=== PATIENT | male | born 1945 | race Two or more races ===

== ENCOUNTER 2021-11-06 01:18 | Inpatient (IN) | payer MEDICARE, OTHER ==
[~2021-11-06] VITALS: Ht 182.9 cm; Wt 81.6 kg
--- NOTE | 2021-11-06 01:28 | NUR ---
BIBRA 89 FROM HOME FOR MIXED ALCOHOL AND XANAX, A, OX3 ON TRIAGE REPORTED TOOK ONE TAB OF XANAX ONLY AND DENIED SI/HI. PATIENT ALERT AND ORIENTED X3. AMBULATORY WITH NON LABORED BREATHING.
--- NOTE | 2021-11-06 01:48 | NUR ---
URINE COLLECTED AND SENT TO LAB
--- NOTE | 2021-11-06 01:48 | NUR ---
ER CUPOLA MELTING SUPERVISOR @ BEDSIDE
[2021-11-06] MEDS ORDERED: IV NS 0.9% 1,000 ML BAG IV ONE ×2 (02:30)
--- NOTE | 2021-11-06 02:31 | NUR ---
Rain valentin in [facility] - 11/06/21 at 0242 by HUEY Patient discharged to home in stable condition. Written and verbal after care instructions given. Patient verbalizes understanding of instruction.
[2021-11-06 02:51] LABS: ALANINE AMINOTRANSFERASE 43 U/L (12-78); ALKALINE PHOSPHATASE 76 U/L (46-116); ASPARTATE AMINOTRANSFERASE 20 U/L (15-37); BILIRUBIN,DIRECT 0.1 mg/dL (0.0-0.2); BILIRUBIN,TOTAL 0.2 mg/dL (0.2-1.0); CARBON DIOXIDE 28 mmol/L (21-32); CHLORIDE 108 mmol/L (98-107); CREATININE 1.5 mg/dL (0.6-1.3); POTASSIUM 4.3 mmol/L (3.5-5.1); SODIUM SERUM 145 mmol/L (136-145); UREA NITROGEN, BLOOD 45 mg/dL (7-18)
[2021-11-06 02:53] LABS: ACETAMINOPHEN < 2 ug/ml (10-30)
[2021-11-06 02:54] LABS: BASOPHILS % (AUTO) 0.3 % (0.0-2.0); EOSINOPHILS % (AUTO) 1.3 % (0.0-6.0); HEMATOCRIT 41 % (39-51); HEMOGLOBIN 13.6 g/dL (13.5-17.5); LYMPHOCYTES # (AUTO) 0.9 K/uL (0.8-4.8); LYMPHOCYTES % (AUTO) 12.3 % (20.0-44.0); MEAN CORPUSCULAR HGB CONC 34 g/dl (31.0-36.0); MEAN CORPUSCULAR VOLUME 97 fL (80-96); MONOCYTES # (AUTO) 0.6 K/uL (0.1-1.30); MONOCYTES % (AUTO) 8.4 % (2.0-12.0); NEUTROPHILS # (AUTO) 5.7 K/uL (1.8-8.9); NEUTROPHILS % (AUTO) 77.7 % (43.0-81.0); PLATELET COUNT (AUTO) 212 K/uL (150-450); RED BLOOD CELL COUNT(AUTO) 4.21 MIL/uL (4.5-6.0); WHITE BLOOD COUNT (AUTO) 7.3 K/uL (4.3-11.0)
--- NOTE | 2021-11-06 03:04 | NUR ---
20G IV LINE ESTABLISHED AT RAC. 1000ML 0.9% NS ADMINSTERRED END TIME 0404
[2021-11-06] MEDS ORDERED: IV NS 0.9% 1,000 ML IV ONE (03:30)
--- NOTE | 2021-11-06 04:23 | NUR ---
COVID SWAB DONE SENT TO LAB
--- NOTE | 2021-11-06 04:30 | NUR ---
MRSA SWAB COLLECTED AND SENT TO LAB. PATIENT'S BELONGINGS LIST DONE.
[2021-11-06 04:31] LABS: CALCIUM, SERUM 9.3 mg/dL (8.5-10.1); GLUCOSE 126 mg/dL (74-106)
--- NOTE | 2021-11-06 05:41 | NUR ---
TELE BED 721-1
--- NOTE | 2021-11-06 05:54 | NUR ---
REPORT GIVEN TO DARSHAN BOCANEGRA
[2021-11-06] MEDS ORDERED: MAG HYDROX/AL HYDROX/SIMETH 30 ML UDC PO PRN (06:00)
[2021-11-06] MEDS ORDERED: ZOLPIDEM TARTRATE 5 MG TABLET PO PRN (06:00)
[2021-11-06] MEDS ORDERED: MAGNESIUM HYDROXIDE 30 ML UDC PO PRN (06:00)
[2021-11-06] MEDS ORDERED: ONDANSETRON HCL/PF 4 MG/2 ML VIAL IVP PRN (06:00)
[2021-11-06] MEDS ORDERED: IV NS 0.9% 1,000 ML IV PRN (06:00)
[2021-11-06] MEDS ORDERED: ACETAMINOPHEN 325 MG TABLET PO PRN (06:00)
[2021-11-06] MEDS ORDERED: Z GUARD REMEDY 4 OZ OINT TP PRN (06:00)
--- NOTE | 2021-11-06 06:18 | NUR ---
REPORT GIVEN TO NOREEN
--- NOTE | 2021-11-06 06:38 | NUR ---
PATIENT TRANSFFERED TO [facility]- VIA ACLS
--- NOTE | 2021-11-06 06:48 | NUR ---
PT ARRIVED VIA GURNEY, ABLE TO AMBULATE TO BED. VS STABLE. WILL ENDORSE TO ONCOMING SHIFT FOR CARLEE.
[2021-11-06 06:50] VITALS: BP 136/59
--- NOTE | 2021-11-06 07:30 | NUR ---
SUPERVISOR PHOTOCOMPOSITION NOTES PT IN BED, ASLEEP, EASY TO AROUSE, ALERT AND ORIENTED, NO COMPLAINT OF PAIN OR ANY DISCOMFORT, IV FLUIDS INFUSING WELL,CALL LIGHT WITHIN REACH, NEEDS ATTENDED.
[2021-11-06 08:00] VITALS: BP 136/59
[2021-11-06] MEDS ORDERED: PROP80CA64 PO (08:00)
[2021-11-06] MEDS ORDERED: ALPR1TAB7 PO (08:00)
[2021-11-06] MEDS ORDERED: DEXT30TA10 PO (08:00)
[2021-11-06] MEDS ORDERED: ZOLP10TA2 PO (08:00)
[2021-11-06 12:00] VITALS: BP 155/87
[2021-11-06] MEDS ORDERED: LORAZEPAM 0.5 MG TABLET PO PRN (12:00)
[2021-11-06 12:40] LABS: ALBUMIN 3.9 g/dL (3.4-5.0); TOTAL PROTEIN, SERUM 6.7 g/dL (6.4-8.2)
[2021-11-06] MEDS: FOLIC ACID 1 MG TABLET PO SCH (12:45)
[2021-11-06] MEDS: THIAMINE HCL 100 MG TABLET PO SCH (12:45)
--- NOTE | 2021-11-06 12:50 | NUR ---
SS Consult requested for OD. Per EMR, the pt. took Xanax for sleep as he has Hx. of insomnia and drank alcohol. Pt. also tested positive for Cannabinoids and Meth SW met with pt at bedside. The pt. is drowsy and can barely answer questions. SW will follow up at a later time when pt. is more alert.
--- NOTE | 2021-11-06 13:00 | NUR ---
SPRING PRODUCTION SUPERVISOR NOTES PT IN BED, AWAKE, ALERT AND ORIENTED, NO COMPLAINT OF PAIN, PT SEEN BY DR. GRAFF, PLAN OF CARE DISCUSSED WITH PT, PT ABLE TO AMBULATE TO THE BATHROOM WITH STEADY GAIT, AWAITING NEPHROLOGY CONSULT.
[2021-11-06 16:00] VITALS: BP 143/69
--- NOTE | 2021-11-06 19:00 | NUR ---
SMOKING PIPE MAKER NOTES PT IN BED, ASLEEP, EASILY AROUSABLE, ALERT AND ORIENTED, VISITED BY FAMILY TODAY, ABLE TO AMBULATE TO THE BATHROOM NEEDED, WITH STEADY GAIT, IV FLUIDS INFUSING WELL, CALL LIGHT WITHIN REACH.
--- NOTE | 2021-11-06 19:30 | NUR ---
RN OPENING NOTE PATIENT IN BED, AWAKE. PATIENT IS A/O X 4, PATIENT IS ON RA, TOLERATING WELL. PATIENT DOES NOT HAVE ANY PAIN AT THIS TIME. NO WITHDRAWAL SYMPTOMS OBSERVED. SAFETY MEASURES IN PLACE: BED LOCKED AND IN LOWEST POSITION, CALL LIGHT WITHIN REACH, SIDE RAILS UP. GAVE PATIENT A SPECIMEN CUP TO COLLECT URINE SAMPLE. WILL MONITOR PATIENT CLOSELY.
[2021-11-06 20:00] VITALS: BP 141/74
--- NOTE | 2021-11-07 00:20 | NUR ---
URINE SAMPLE COLLECTED. AWAITING LAB TO CAFE SITE ATTENDANT SPECIMEN.
[2021-11-07 04:24] LABS: BILIRUBIN,URINE NEGATIVE (NEGATIVE); COLOR,URINE YELLOW (YELLOW); LEUKOCYTE ESTERASE ,URINE NEGATIVE (NEGATIVE); NITRITE, URINE NEGATIVE (NEGATIVE); PH,URINE 5.5 (5.0-8.0); PROTEIN,URINE NEGATIVE (NEGATIVE); UGLUCOSE NEGATIVE (NEGATIVE); UROBILINOGEN,URINE 0.2 EU/dL (0.2)
[2021-11-07 04:52] LABS: CREATININE, URINE 59.1 MG/DL (30.0-125.0)
[2021-11-07 06:23] LABS: BASOPHILS % (AUTO) 0.4 % (0.0-2.0); HEMATOCRIT 37 % (39-51); HEMOGLOBIN 12.8 g/dL (13.5-17.5); LYMPHOCYTES # (AUTO) 1.3 K/uL (0.8-4.8); MEAN CORPUSCULAR HGB CONC 34 g/dl (31.0-36.0); MEAN CORPUSCULAR VOLUME 95 fL (80-96); MONOCYTES # (AUTO) 0.5 K/uL (0.1-1.30); MONOCYTES % (AUTO) 9.6 % (2.0-12.0); NEUTROPHILS # (AUTO) 3.1 K/uL (1.8-8.9); PLATELET COUNT (AUTO) 193 K/uL (150-450); RED BLOOD CELL COUNT(AUTO) 3.92 MIL/uL (4.5-6.0); WHITE BLOOD COUNT (AUTO) 5.2 K/uL (4.3-11.0)
--- NOTE | 2021-11-07 07:30 | NUR ---
RN CLOSING NOTE PATIENT IN BED, AWAKE. PATIENT IS A/O X 4, PATIENT IS ON RA, TOLERATING WELL. PATIENT DOES NOT HAVE ANY PAIN AT THIS TIME. NO WITHDRAWAL SYMPTOMS OBSERVED. SAFETY MEASURES IN PLACE: BED LOCKED AND IN LOWEST POSITION, CALL LIGHT WITHIN REACH, SIDE RAILS UP. AL NURSING NEEDS MET THROUGHOUT THE SHAFT AND ANTICIPATED. WILL ENDORSE C.O.C TO DAY SHIFT NURSE.
[2021-11-07 07:46] LABS: BILIRUBIN,DIRECT 0.1 mg/dL (0.0-0.2); BILIRUBIN,TOTAL 0.4 mg/dL (0.2-1.0); CALCIUM, SERUM 8.4 mg/dL (8.5-10.1); MAGNESIUM 1.9 mg/dL (1.8-2.4); PHOSPHORUS 4.2 mg/dL (2.5-4.9); POTASSIUM 3.5 mmol/L (3.5-5.1); TOTAL PROTEIN, SERUM 5.9 g/dL (6.4-8.2)
--- NOTE | 2021-11-07 08:09 | NUR ---
RN Opening Note Patient received in bed AO x 3, able to responds all stimuli. Respiratory even and unlabored on room air. No distress observed. property assessment monitor shows sr HR- 66-70, PVC occasionally. Skin is warm to touch, keep clean/dry, intact IV site. Kept elevated HOB for ensure airway/aspiration precaution and remain lower position of the bed for safety. call light within reach, will continue to monitor.
[2021-11-07 08:14] VITALS: BP 95/45
[2021-11-07] MEDS: FOLIC ACID 1 MG TABLET PO SCH (08:40)
[2021-11-07] MEDS: THIAMINE HCL 100 MG TABLET PO SCH (08:40)
[2021-11-07 13:04] VITALS: BP 126/79
--- NOTE | 2021-11-07 13:40 | NUR ---
SS consult: SS consult requested for overdose. Pt. is a 76-year-old male who was brought in by rescue ambulance for altered mental status per EMR. Pt. was admitted to [facility] for acute kidney injury, benzodiazepine intoxication and hypotension per EMR. Upon SS consult, pt. is alert and oriented x4 & made poor eye contact. Pt. presents with an anxious mood and affect. Pt. appears unkempt and was cooperative throughout the interview. Pt. spoke with pressured speech and tangential thought process. SW explored pt.s social support. Pt stated he lives with his Marion ([phone]) at [facility], [place], [address]. SW explored if pt. was ambulatory. Pt. stated he was ambulatory and did not use a walker, cane or wheelchair and is independent with his ADLs. SW explored pt.s financial situation. Pt. stated he receives social security income. SW explored pt.s substance abuse hx. Pt. stated he has not used drugs in a few years. Pt. stated he has four beers a week. Per EMR, pt.s drug test came up positive for amphetamines, benzodiazepine, alcohol and cannabinoids. Pt. stated he takes Xanax for sleeping an tremors and takes Adderall for his ADHD diagnosis. Pt. states his PCP prescribes these medications to him. SW completed brief substance abuse intervention. Pt denies substance use issues. Pt. is in denial. SW offered addiction resources and pt. accepted them. SW explored pt.s psychiatric diagnosis. Pt. stated he is under the care of a psychiatrist and is diagnosed with ADHD and anxiety. Pt. denied visual/auditory hallucinations. Pt. denied suicidal/homicidal ideations. Plan: Upon discharge, pt. will return to [facility], [place], [address]. Pt. stated his Marion ([phone]) will provide transportation. SW will remain available as needed. ADDICTION RESOURCES For Drugs and Alcohol [facility] Substance Abuse Helpline(SAS)-[facility] Outpatient treatment, residential treatment, recovery support for youth and adults [facility] www.actionfamilycounseling.[facility] programs for drug/alcohol education and support [facility] [place]. Program for adults, sliding scale provides support and education SYLO[facility] www.Related Content Database (RCDb).org [place]; Outpatient/residential treatment programs; transition to sober living [facility] www.cri-help.org [place]; Outpatient and residential treatment programs; transition to sober living [facility] [place] [facility] [place]; Outpatient education and supportive programs for teens and adults [place] [facility] www.[facility] cent[facility].org [place]; Residential treatment and work program for females only [place] www.[facility] [place].Amtec [facility]: Outpatient/residential treatment program for teens and young adults [facility] www.[facility].org [place] [facility], inpatient, outpatient for adults and youth [facility], [facility]. [place]; Outpatient programs and referrals to community residential programs. Alcoholics Anonymous -SFV information and meeting and schedules www.aa-intergroup.org Gi-Fazg-Zwgnoef https://al-anon.org/ [place] support groups for family of alcoholics. Marijuana Anonymous www.madistrict6.org -SFV listing of meetings Narcotics Anonymous www.na.org SOBER LIVING RESOURCES [facility] www.soberhousing.net A non-profit agency that provides resources to recovery and sober living homes throughout [place], [facility] Sober Living Homes: A Work in Progress, [facility], [facility] Homes: [facility] [phone], [place] [facility] Sober Living Homes: [facility]Outpatient [facility] [address] [place] [address] [place] [address] (Specializes in in-depth psychotherapy for emotional distress: anxiety, depression, interpersonal conflicts, life transitions, childhood abuse) [facility] [address] [place] [address] (Assist with solving problem marital difficulties, separation & divorce, aging parents, & grief, chronic & terminal illness) [facility] [address] [place] [address] (Deal with loss & grief, anxiety, marital difficulties) Home[facility]Mental Health Services [address] [facility], [address] [place] [address] (Provide in-home mental services to people who are incapable of leaving their homes) Organization for Needs of the Elderly [facility] Service[facility] [address] [place] [address] [facility] [address] [place] [address] Mental Health Services [facility] [address] [place] [address] Services: Outpatient therapy for children, teens, young adults, adults, older adults, and families; Psychiatric services, medication support Psychiatric Outpatient Services [facility] Partial Hospitalization and Intensive Outpatient Program (Managed Care and [place] Only)[address] [facility]. [facility] [phone] [facility] Partial Hospitalization and Outpatient [id number] [facility]. [address] [place], [place] [phone] [facility] Partial Hospitalization and Outpatient [id number] [facility] [place], [place] [phone] [place] [facility] [id number] [place], [place] [phone] [facility] Partial Hospitalization and Outpatient [id number] [place], [phone] Crisis and Hotline Telephone Numbers 24-Hour service unless stated [place] Crisis Hotlines: [facility] Mental Health/Crisis Line........[phone] Suicide Prevention Center (24 Hours).......108.474.8616 Suicide Prevention Crisis Center.......227.372.9739 (24 Hours) Assaults Against Women Hotline.........743.265.6468 (24 Hours -- [facility]) Women and Children Crisis Retirement...........822.880.3241 (24 Hours) Child Abuse Hotline............499.252.8830 [facility] of Childrens Services [facility] (24 Hours)..........808.130.7689 Alcoholics Anonymous (24 Hours)..........662.677.9516 Cocaine Anonymous (24 Hours)............472.427.8259 Narcotics Anonymous (24 Hours)..........445.194.4670 Neer[facility] [address] [place] [address]
--- NOTE | 2021-11-07 14:00 | NUR ---
Patient discharge to home, given discharge instruction to and patient include discontinue medications and follow up primary MD in 1-2 weeks. Patient denies distress, in stable condition.
== END 2021-11-07 14:00 | disposition home or self-care (01) | DRG 917 ==
LOC: ER 01:20 → TELE 05:47
PROVIDERS: ADMIT Nurse Practitioner Family; ATTEND Nurse Practitioner Family
DX: T42.4X1A Poisoning by benzodiazepines, accidental (unintentional), initial encounter (principal); N17.0 Acute kidney failure with tubular necrosis; G92.9 Unspecified toxic encephalopathy; F41.9 Anxiety disorder, unspecified; R73.9 Hyperglycemia, unspecified; Z79.899 Other long term (current) drug therapy; F19.129 Other psychoactive substance abuse with intoxication, unspecified; G47.00 Insomnia, unspecified; G25.0 Essential tremor; Y92.009 Unspecified place in unspecified non-institutional (private) residence as the place of occurrence of the external cause; T51.91XA Toxic effect of unspecified alcohol, accidental (unintentional), initial encounter
CPT/HCPCS: 36415; 80048-TC; 80076-TC; 82550-TC; 82570-TC; 83690-TC; 83735-TC; 84100-TC; 84300-TC; 85025-TC; 87081-TC; C9803; G0378; G0480; J7030